=== PATIENT | male | born 1980 | race Caucasian/White ===

== ENCOUNTER 2017-06-01 17:46 | Emergency (ER) | payer OTHER, SELFPAY ==
[2017-06-01 17:46] VITALS: BP 162/90; PULSE 100; RESP 18; TEMP 36.8; O2SAT 100; BMI 39.5
--- NOTE | 2017-06-01 18:00 | CT_ITS ---
STUDY: CT ABDOMEN AND PELVIS WITHOUT CONTRAST REASON FOR EXAM: Male, 36 years old. Right-sided flank pain. RADIATION DOSAGE (If Supplied By Facility): CTDIvol = ( 22.30 ) mGy, DLP = ( 1197.87 ) mGycm TECHNIQUE: Transaxial images were obtained from the dome of the diaphragm to the symphysis pubis without oral contrast, and without intravenous contrast. Sagittal and coronal images were reconstructed. Individualized dose optimization techniques were used for this CT. COMPARISON: Prior comparison studies are not available for review at this time. FINDINGS: The visualized lung bases are unremarkable. The visualized portions of the heart are within normal limits. Normal liver. Normal gallbladder and extrahepatic biliary system. Normal spleen. Normal pancreas. Normal bilateral adrenal glands. Normal right kidney. Normal left kidney. Normal visualized stomach. There is no evidence for dilated bowel, ascites or pneumoperitoneum. Small bowel has a grossly normal appearance. Normal colon. There are surgical clips in the region of the appendix consistent with a prior appendectomy. There is minimal atherosclerotic calcification of the abdominal aorta, without a demonstrated aneurysm. Normal inferior vena cava. Normal retroperitoneum. Normal urinary bladder. Normal visualized prostate gland. There is mesh material visible within the anterior abdominal wall consistent with ventral herniorrhaphy. There is degenerative disc disease at L5-S1. CT/Abdomen/Pelvis without Cont IMPRESSION: No CT evidence of acute intra-abdominal disease. Electronically Signed: Belinda Krishna MD at 19:06 EST , Service support ,
[2017-06-01 18:05] LABS: Bacteria 0 SEEN /hpf (None Seen); Squamous Epithelial Cells - UA 0 SEEN /hpf (0-5); White Blood Cells 0 SEEN /hpf (0-5)
[2017-06-01] MEDS: Ondansetron 4 MG/2 ML Vial IV (18:05)
[2017-06-01] MEDS: Ketorolac 30 MG/ML Syringe IV (18:05)
--- NOTE | 2017-06-01 18:05 | ED.DCSUM_ITS ---
- ER Visit Summary Date of Service: 06/01/17 Chief Complaint: Flank pain History of Present Illness: The patient is a 36 M ends to the emergency department with rather acute onset right-sided flank pain. Patient symptoms began about an hour ago. He describes a sharp stabbing pain in his right flank with some nausea. He denies any urinary symptoms. The patient has never had pain like this before. He denies any history of prior kidney stone. Only medical history is significant for partial colectomy for ruptured appendicitis 12 years ago. He has had no abdominal pain or vomiting. He is moving his bowels without issue. Physical Examination: Vital signs reviewed General: Well-nourished, well-developed Head: Normocephalic, atraumatic Eyes: Pupils equal and reactive, extraocular muscles intact Neck, supple, no lymphadenopathy Heart: Regular rate and rhythm Respiratory: No distress, clear bilaterally Abdomen: Soft, nontender, nondistended, no peritoneal signs Back: Mild right CVA tenderness Extremities: Nontender, no edema, no cords Skin: Normal color no rash Neuro: Alert and oriented, no focal or lateralizing deficits Test Results: Rating labs are unremarkable. Urine does show trace blood. CT does not show definitive kidney stone or other acute intra-abdominal process. Emergency Department Course and Treatment: The patient presented with rather sudden onset right-sided flank pain. His signs and symptoms were consistent with kidney stone. He does have a mild amount of blood within the urine. IV was established. The patient was given analgesics with improvement of symptoms. His lab work is unremarkable. His CT does not demonstrate any acute obstructive process. Intra-abdominal organs are normal. There is no evidence of dangerous process. With the patient's small amount of hematuria, sudden onset pain with colic, and CVA tenderness I do feel that this likely represents a small stone. I am not sure if it just was not visualized because of the cuts of the CT. I am going to treat the patient with a short course of analgesics and antiemetics. He will be discharged home. Treatment Plan: [] Disposition: Discharge Impression: 1. Right flank pain This note was generated with [employer] dictation software. It may contain incorrect words, spelling, and punctuation that were not noted in review of the chart prior to signing ED Disposition - Plan for ED Patient: Chief Complaint: Flank Pain Instructions: ED Stone Renal W Colic Prescriptions: Hydrocodone Bitart/Apap 5-325 [Lee 5/325] 1 tab PO Q6H PRN PRN 3 Days #12 tab PRN Reason: Pain Ondansetron [Zofran Odt] 4 mg PO Q8H PRN PRN #10 tab PRN Reason: Nausea Referrals: Robyn Mejia DO [Primary Care Provider] -
[2017-06-01 18:06] LABS: Color, Urine Yellow (Yellow); Glucose, Dipstick Normal (Normal); Ketone-Dipstick Negative (Negative); Leukocyte Esterase-Dipstick Negative /ul (Negative); Nitrite-Dipstick Negative (Negative); Occult Blood-Urine 25 /ul (Negative); Protein-Dipstick Negative (Negative); Specific Gravity, Urine 1.025 (1.002-1.030); Urine Bilirubin Dipstick Negative (Negative); Urine Clarity Clear (Clear); Urine Urobilinogen Normal (Normal)
[2017-06-01] MEDS: 0.9% Normal Saline 1,000 ML 250 ML IV (18:06)
[2017-06-01 18:07] LABS: Absolute Lymphocyte Count 3.02 X10^3/ul (0.83-4.51); Absolute Neutrophil Count 6.2 X10^3/uL (2.0-7.7); Basophil# 0.04 X10^3/uL; Basophil% 0.4 % (0-1); Eosinophil# 0.13 X10^3/uL; Eosinophils% 1.3 % (0-5); Hematocrit 44.4 % (40-54); Hemoglobin 15.4 g/dl (13.0-16.5); Lymphocyte # 3.02 X10^3/ul (4.0); Lymphocyte % 29.8 % (19-41); Mean Corp Hgb Conc 34.7 g/gl (32-36); Mean Corpuscular Hgb 30.9 pg (27.0-32.0); Mean Platelet Vol. 9.7 fl (6.2-12.0); Monocyte# 0.67 X10^3/uL; Monocyte% 6.6 % (0-10); Neutrophil # 6.23 X10^3/uL (2.7-7.7); Neutrophil % 61.6 % (47-70); POSITIVE COUNT NO; POSITIVE DIFFERENTIAL NO; POSITIVE MORPHOLOGY NO; Platelet Count 269 K/mm3 (150-450); RBC Distribution Width CV 13.1 % (11.6-14.6); RBC Distribution Width SD 42.4 fl (35.1-43.9); Red Blood Count 4.99 M/mm3 (4.6-6.2); White Blood Count 10.1 K/mm3 (4.4-11.0)
[2017-06-01 18:21] LABS: Mucous, Urine RARE /hpf (<or=2+); Red Blood Cells-Urine 0-5 SEEN /hpf (0-5)
[2017-06-01 18:23] LABS: Anion Gap 6 (5-15); BUN 21 mg/dL (7-18); BUN/Creat Ratio 21.8 RATIO (10-20); Calcium,Total 8.8 mg/dL (8.5-10.1); Chloride 105 mmol/L (98-107); Creatinine, Serum 0.96 mg/dL (0.70-1.30); EST Glomerular Filtration Rate 94 mL/min (>60); Est Glom Filt Rate - Afr Amer 114 mL/min (>60); Estimated Creatinine Clearance 110.89 ml/min; Glucose 112 mg/dL (74-106); Potassium 4.8 mmol/L (3.5-5.1); Sodium Level 139 mmol/L (136-145)
[2017-06-01] MEDS: HYDROcodone Bitartrate/Apap 5/325 Tablet PO (19:34)
[2017-06-01 19:38] VITALS: BP 124/57; PULSE 79; RESP 18; O2SAT 94
== END 2017-06-01 19:39 | disposition home or self-care (01) ==
LOC: ED 18:34
PROVIDERS: Emergency Provider Emergency Medicine; Family Provider Family Medicine; PCP Family Medicine
DX: N20.0 Calculus of kidney (principal)
CPT/HCPCS: 74176; 80048; 81001; 85025; 96361; 96374; 96375; 96376; 99283; A4216; J2405

== ENCOUNTER → 2017-09-10 13:27 | Outpatient (CLI) | payer OTHER, SELFPAY ==
--- NOTE | 2017-09-10 13:30 | RAD_ITS ---
STUDY: X-RAY - RIGHT SHOULDER REASON FOR EXAM: Right shoulder pain, no specific injury. TECHNIQUE: 3 view(s) of the shoulder. COMPARISON: None. FINDINGS: Normal glenohumeral articulation. Normal acromioclavicular joint. Normal acromion. Normal humeral head and visualized proximal humerus. The soft tissue structures are unremarkable. Normal visualized pulmonary apex. RAD/Shoulder min 2 Views IMPRESSION: Normal x-ray examination of the right shoulder. Electronically Signed: Murtaza Retana MD at 14:09 EDT Tel , Service support ,
--- NOTE | 2017-09-10 13:30 | RAD_ITS ---
STUDY: X-RAY - LEFT SHOULDER REASON FOR EXAM: Left shoulder pain, no specific injury. TECHNIQUE: 3 view(s) of the shoulder. COMPARISON: Radiograph report 10/01/2011. FINDINGS: Normal glenohumeral articulation. There is mild capsular calcification at the superior aspect of the acromioclavicular joint. Normal acromion. Normal humeral head and visualized proximal humerus. Normal visualized pulmonary apex. RAD/Shoulder min 2 Views IMPRESSION: Mild capsular calcification at the superior aspect of the acromioclavicular joint. Otherwise, unremarkable x-ray examination of the left shoulder. Electronically Signed: Murtaza Retana MD at 14:07 EDT Tel , Service support ,
== END ==
PROVIDERS: Family Provider Family Medicine; PCP Family Medicine; Visit Provider Orthopaedic Surgery
DX: M25.812 Other specified joint disorders, left shoulder (principal); M25.511 Pain in right shoulder
CPT/HCPCS: 73030

== ENCOUNTER → 2017-11-20 08:45 | Outpatient (CLI) | payer OTHER, SELFPAY ==
[2017-11-20 12:29] LABS: ALB/GLOB Ratio 1.1 RATIO (0.9-2.4); AST(SGOT) 31 U/L (15-37); Alanine Aminotransfer ALT/SGPT 60 U/L (16-61); Alkaline Phosphatase 63 U/L (45-117); Anion Gap 9 (5-15); BUN 17 mg/dL (7-18); BUN/Creat Ratio 19.3 RATIO (10-20); Calcium,Total 8.9 mg/dL (8.5-10.1); Chloride 104 mmol/L (98-107); Cholesterol 190 mg/dL (200); Creatinine, Serum 0.88 mg/dL (0.70-1.30); EST Glomerular Filtration Rate 104 mL/min (>60); Est Glom Filt Rate - Afr Amer 125 mL/min (>60); Globulin 3.6 g/dL (2.2-4.2); Glucose 92 mg/dL (74-106); High Density Lipoprotein 36 mg/dL; Protein, Total 7.6 g/dL (6.4-8.2); Sodium Level 138 mmol/L (136-145); Triglycerides 289 mg/dL; Very Low Density Lipoprotein 58 mg/dL (5-40)
== END ==
LOC: BFHLAB 08:46
PROVIDERS: Family Provider Family Medicine; PCP Family Medicine; Visit Provider Family Medicine
DX: I10 Essential (primary) hypertension (principal); E78.5 Hyperlipidemia, unspecified; Z51.81 Encounter for therapeutic drug level monitoring
CPT/HCPCS: 36415; 80053; 80061

== ENCOUNTER → 2018-03-24 13:34 | Outpatient (CLI) | payer OTHER, SELFPAY ==
--- NOTE | 2018-03-24 13:36 | RAD_ITS ---
STUDY: X-RAY - LEFT WRIST REASON FOR EXAM: Male, 37 years old. Left wrist pain. TECHNIQUE: 3 view(s) of the wrist were obtained. COMPARISON: None. FINDINGS: Normal visualized distal radius and ulna. Normal radiocarpal articulation. Normal distal radioulnar articulation. Normal carpal bones. Normal carpal articulations. Normal carpometacarpal articulation of the thumb. Normal second through fifth carpometacarpal articulations. Normal visualized metacarpal bones. The soft tissue structures are unremarkable. There is no demonstrated acute fracture. RAD/Wrist min 3 Views IMPRESSION: Normal x-ray examination of the wrist. Electronically Signed: Lamont Goins MD at 17:04 EST , Service support ,
== END ==
PROVIDERS: Family Provider Family Medicine; PCP Family Medicine; Referring Provider Physician Assistant; Visit Provider Physician Assistant
DX: M25.532 Pain in left wrist (principal)
CPT/HCPCS: 73110

== ENCOUNTER → 2018-07-07 14:55 | Outpatient (CLI) | payer OTHER, SELFPAY ==
[2018-07-07 17:16] LABS: Absolute Lymphocyte Count 2.35 X10^3/ul (0.83-4.51); Basophil# 0.02 X10^3/uL; Basophil% 0.3 % (0-1); Eosinophil# 0.06 X10^3/uL; Eosinophils% 0.8 % (0-5); Hematocrit 39.7 % (40-54); Hemoglobin 13.2 g/dl (13.0-16.5); Lymphocyte # 2.35 X10^3/ul (4.0); Lymphocyte % 32.4 % (19-41); Mean Corp Hgb Conc 33.2 g/gl (32-36); Mean Corpuscular Hgb 29.3 pg (27.0-32.0); Mean Corpuscular Volume 88.2 fL (80-94); Mean Platelet Vol. 9.5 fl (6.2-12.0); Monocyte# 0.78 X10^3/uL; Monocyte% 10.7 % (0-10); Neutrophil # 4.04 X10^3/uL (2.7-7.7); Neutrophil % 55.7 % (47-70); Platelet Count 261 K/mm3 (150-450); RBC Distribution Width CV 12.6 % (11.6-14.6); RBC Distribution Width SD 40.7 fl (35.1-43.9); White Blood Count 7.3 K/mm3 (4.4-11.0)
[2018-07-07 17:18] LABS: POSITIVE COUNT NO; POSITIVE DIFFERENTIAL NO; POSITIVE MORPHOLOGY NO
[2018-07-07 17:29] LABS: ALB/GLOB Ratio 1.2 RATIO (0.9-2.4); AST(SGOT) 67 U/L (15-37); Alanine Aminotransfer ALT/SGPT 66 U/L (16-61); Albumin, Serum 3.9 g/dL (3.2-5.0); Alkaline Phosphatase 58 U/L (45-117); Anion Gap 6 (5-15); BUN 22 mg/dL (7-18); BUN/Creat Ratio 23.6 RATIO (10-20); Calcium,Total 8.4 mg/dL (8.5-10.1); Chloride 106 mmol/L (98-107); Cholesterol 211 mg/dL (200); Creatinine, Serum 0.93 mg/dL (0.70-1.30); EST Glomerular Filtration Rate 97 mL/min (>60); Est Glom Filt Rate - Afr Amer 117 mL/min (>60); Free T3 3.1 pg/mL (2.18-3.98); Globulin 3.2 g/dL (2.2-4.2); Glucose 124 mg/dL (74-106); High Density Lipoprotein 31 mg/dL; Potassium 3.8 mmol/L (3.5-5.1); Protein, Total 7.1 g/dL (6.4-8.2); Sodium Level 135 mmol/L (136-145); T4 Free Direct 0.81 ng/dL (0.76-1.46); Thyroid Stim Hormone (TSH) 3.09 uIU/mL (0.358-3.74); Triglycerides 852 mg/dL
[2018-07-07 18:07] LABS: HIV - WCH Non-Reactive (Nonreactive)
[2018-07-07 18:42] LABS: Chlamydia Trachomatis by PCR Negative (Negative); Neisserai gonorrhoeae by PCR Negative (Negative); Probe Check PASS; Sample Adequacy Control PASS; Specimen Processing Control PASS
[2018-07-09 11:35] LABS: Hemoglobin A1c 5.7 % (4.2-6.3)
[2018-07-11 02:05] LABS: Rapid Plasmin Reagin (RPR) NONREACTIVE (NONREACTIVE)
[2018-07-11 14:07] LABS: Testosterone, Free 4.13 ng/dL (5.00-21.00)
[2018-07-12 16:55] LABS: Testosterone, Total 258 ng/dL (264-916)
== END ==
PROVIDERS: Family Provider Family Medicine; PCP Family Medicine; Visit Provider Family Medicine
DX: F32.9 Major depressive disorder, single episode, unspecified (principal); E55.9 Vitamin D deficiency, unspecified; E78.1 Pure hyperglyceridemia; R53.83 Other fatigue; Z20.9 Contact with and (suspected) exposure to unspecified communicable disease; Z51.81 Encounter for therapeutic drug level monitoring; R73.01 Impaired fasting glucose
CPT/HCPCS: 36415; 80053; 80061; 82306; 83036; 84402; 84403; 84439; 84443; 84481; 85025; 86592; 86703; 87491; 87591

== ENCOUNTER → 2020-07-14 13:32 | Outpatient (CLI) | payer MEDICARE, SELFPAY ==
[2020-07-14 17:03] LABS: Probe Check PASS; Specimen Processing Control PASS
== END ==
PROVIDERS: Visit Provider Family Medicine
DX: Z20.828 Contact with and (suspected) exposure to other viral communicable diseases (principal)
CPT/HCPCS: 87635; U0002

== ENCOUNTER 2025-02-22 18:33 | Emergency (ER) | payer OTHER, SELFPAY ==
[2025-02-22 18:34] VITALS: BP 116/71; PULSE 103; RESP 18; TEMP 38.1; O2SAT 97; BMI 33.1
--- NOTE | 2025-02-22 19:11 | EX.ED.DYSGE1 ---
HPI History of Present Illness Chief Complaint: General Illness Narrative Narrative: 44-year-old male who denies significant past medical history presents with fever and bodyaches that he has had for the last 2 days. He states his symptoms began on Saturday, perhaps Saturday evening when he went to bed. He is in town visiting his father who is on hospice. States he has had subjective fever, occasional dry cough but denies any shortness of breath. Has had bodyaches and joint aches. Denies runny nose or problems with urination. States he has been using ibuprofen like candy. He has had subjective fever that is unrelenting. His chief complaint is the body aches. He states that his mother called EMS because of his illness. No exacerbating or alleviating factors. [facility] Medical History Encounter for examination required by Department of Transportation (DOT) HTN (hypertension) Home Medications ?Medication ?Instructions ?Recorded ?Last Taken ?Type lisinopril 20 mg tablet (Zestril) 20 mg PO DAILY HTN 06/01/16 06/01/16 History escitalopram oxalate 20 mg tablet 20 mg PO 09/15/21 Unknown History Allergy/AdvReac Type Severity Reaction Status Date / Time No Known Allergies Allergy Verified 02/22/25 18:35 Family History Other Hypertension Surgical History H/O arthroscopy of right knee History of abdominal surgery Social History Smoking Status: Current every day smoker tobacco type: cigarettes alcohol intake: never frequency: 3-4 times per week ROS ROS ED ROS Narrative Review of symptoms positive for fever, arthralgias and myalgias, multiple. Occasional dry cough. No shortness of breath, no sore throat or rhinorrhea, no dysuria. EXAM Physical Exam Narrative Exam Narrative: Temperature 100.6 ?F, vital signs noted. Neck soft and supple without meningismus. Airway patent, no drooling or trismus, no tonsillar exudate. Cardiovascular examination reveals mild tachycardia. Lungs are clear to auscultation bilaterally. Abdomen soft and nontender with positive bowel sounds. Skin without noted rash. Neurological examination nonfocal, nonlateralizing. Const Vital Signs: 02/22/25 18:34 02/22/25 19:35 02/22/25 20:00 Temperature 100.6 F H 99.4 F H 99.4 F H Temperature Source Oral Oral Oral Pulse Rate 103 H 90 89 Respiratory Rate 18 18 18 Blood Pressure 116/71 101/53 L 102/50 L Blood Pressure Mean 86 69 67 Pulse Ox 97 94 93 Oxygen Delivery Method Room Air Room Air Room Air 02/22/25 20:33 02/22/25 21:00 Temperature 99.4 F H Temperature Source Oral Pulse Rate 89 85 Respiratory Rate 18 16 Blood Pressure 97/55 L 104/73 Blood Pressure Mean 69 83 Pulse Ox 95 99 Oxygen Delivery Method Room Air MDM MDM MDM Narrative Medical decision making narrative: Differential diagnosis includes but not limited to viral syndrome including COVID versus influenza versus RSV versus rhinovirus. He was swabbed. He was given Toradol 30 mg IV and urinalysis will be obtained as well as a respiratory swab and chest x-ray. Chest x-ray 1 view interpreted by myself independently shows no evidence of a consolidation or pneumothorax. I reviewed the radiology report which confirms my independent interpretation. I do not feel antibiotics are indicated. Urinalysis is negative for infection with 0-5 WBCs and negative nitrites. I do not feel antibiotics are indicated for UTI. Of significance is his respiratory swab which is positive for COVID. At this point in time, upon repeat examination his temperature is 99.4 ?F, and he feels slightly improved at approximately 9:40 PM. I do not feel that he requires Paxlovid or dexamethasone as he is not hypoxic. She will be symptomatic. He will follow-up with his primary care provider. Return instructions to the emergency department were reviewed. Disposition is discharged home in stable condition. History & Record Review Discussion w/independent historian: Patient Additional record(s) reviewed:: Prior ED visit (Last prior ED visit 2017) Lab Data Attestation: I reviewed the patient's lab results. Labs: Laboratory Results - last 24 hr 02/22/25 20:29 Urine Color Yellow Urine Clarity Clear Urine pH 5.0 Ur Specific [place] 1.025 Urine Protein 100 H Urine Glucose (UA) 100 H Urine Ketones 5 H Urine Occult Blood 250 H Urine Nitrite Negative Urine Bilirubin 1 H Urine Urobilinogen 1 H Ur Leukocyte Esterase 25 H Urine RBC 10-25 SEEN Urine WBC 0-5 SEEN Ur Squamous Epith Cells 0-5 SEEN Urine Bacteria 1+ Urine Mucus 2+ Radiography Diagnostic Testing: Clinical Impression(s) from Imaging Studies Chest X-Ray 02/22/25 19:32 IMPRESSION: No evidence of acute pulmonary disease. Reading Location: [facility] Discharge Plan Triage Chief Complaint: General Illness ED Provider: Zach Basilio Dx/Rx/DC Orders Clinical Impression: COVID, Viral syndrome Instructions: Coronavirus Disease 2019 (COVID-19): Caring for Yourself or Others, ED Viral Syndrome (Adult) Prescriptions: No Action escitalopram oxalate 20 mg tablet 20 mg PO Patient Comments: TAKE 1 TABLET BY MOUTH EVERY DAY lisinopril [Zestril] 20 MG tablet 20 mg PO DAILY Primary Care Provider: Care Physician,No Primary Referrals: NOT,DEFINED [Non-Staff, None] Activity Restrictions/Additional Instructions: Drink plenty of oral fluids. Tylenol or ibuprofen as needed for pain and fever. Given your body weight, you can take ibuprofen 800 mg orally every 8 hours. Make sure to take with food as it can cause GI upset and ulcers/bleeding ulcers. Return with increased difficulty breathing, new or worsening symptoms. Follow-up with the primary care provider in 1 week if not improving. Print Language: Divehi Disposition Disposition: Home, Self Care
[2025-02-22] MEDS: 0.9% Normal Saline (1000mL) 1,000 ML 999 ML IV (19:26)
[2025-02-22] MEDS: Ketorolac 30 MG/ML Syringe IV (19:26)
--- NOTE | 2025-02-22 19:32 | RAD_ITS ---
PROCEDURE: RAD/Chest 1 View (Portable)
[2025-02-22 19:35] VITALS: BP 101/53; PULSE 90; RESP 18; TEMP 37.4; O2SAT 94
[2025-02-22 20:00] VITALS: BP 102/50; PULSE 89; RESP 18; TEMP 37.4; O2SAT 93
[2025-02-22 20:33] VITALS: BP 97/55; PULSE 89; RESP 18; O2SAT 95
[2025-02-22 21:00] VITALS: BP 104/73; PULSE 85; RESP 16; TEMP 37.4; O2SAT 99
[2025-02-22 21:09] LABS: Color, Urine Yellow (Yellow); Glucose, Dipstick 100 mg/dl (Normal); Ketone-Dipstick 5 mg/dl (Negative); Leukocyte Esterase-Dipstick 25 /ul (Negative); Nitrite-Dipstick Negative (Negative); Occult Blood-Urine 250 /ul (Negative); Protein-Dipstick 100 mg/dl (Negative); Specific Gravity, Urine 1.025 (1.002-1.030)
[2025-02-22 21:10] LABS: Urine Bilirubin Dipstick 1 mg/dL (Negative)
[2025-02-22 21:22] LABS: Red Blood Cells-Urine 10-25 SEEN /hpf (0-5)
[2025-02-22 21:23] LABS: Mucous, Urine 2+ /hpf (<or=2+); Squamous Epithelial Cells - UA 0-5 SEEN /hpf (0-5)
[2025-02-22 21:54] VITALS: BP 104/67; PULSE 98; RESP 18; TEMP 37.2; O2SAT 98
== END 2025-02-22 21:55 | disposition home or self-care (01) ==
PROVIDERS: Emergency Provider Emergency Medicine; Visit Provider Emergency Medicine
DX: U07.1 COVID-19 (principal); I10 Essential (primary) hypertension; F17.210 Nicotine dependence, cigarettes, uncomplicated
CPT/HCPCS: 36415; 71045; 81001; 87631; 96361; 96374; 96376; 99285; A4216